=== PATIENT | male | born 1960 | race Caucasian/White ===

== ENCOUNTER 2017-07-24 21:56 | Emergency (ER) | payer BC ==
[2017-07-25 00:27] VITALS: BP 142/83
== END 2017-07-25 00:27 | disposition home or self-care (01) ==
LOC: ED 21:56
DX: T63.441A Toxic effect of venom of bees, accidental (unintentional), initial encounter (principal); I10 Essential (primary) hypertension; Z88.1 Allergy status to other antibiotic agents; Z88.8 Allergy status to other drugs, medicaments and biological substances; Y92.89 Other specified places as the place of occurrence of the external cause
CPT/HCPCS: J1100; J1200